=== PATIENT | female | born 1955 | race Caucasian/White ===

== ENCOUNTER 2017-04-12 20:14 | Emergency (ER) | payer SELFPAY ==
--- NOTE | 2017-04-12 20:29 | EDM.PDOC ---
ED HPI GENERAL MEDICAL PROBLEM - General Stated Complaint: MENTAL HEALTH Time Seen by Provider: 04/12/17 20:24 - History of Present Illness INITIAL COMMENTS - FREE TEXT/NARRATIVE: HISTORY AND PHYSICAL: History of present illness: Patient 61-year-old female brought here after roommate called for patient's altered mental status and severe jaundice patient is answering questions inconsistently unclearly is intermittently agitated uncooperative with paramedics on fourchette and upon arrival in emergency department she will give no history regarding her jaundice or medical condition and it remains fairly clear that the patient is altered. Review of systems: As per history of present illness and below otherwise all systems reviewed and negative. Past medical history: As per history of present illness and as reviewed below otherwise noncontributory. Surgical history: As per history of present illness and as reviewed below otherwise noncontributory. Social history: No reported history of drug or alcohol abuse. Family history: As per history of present illness and as reviewed below otherwise noncontributory. Physical exam: HEENT: Severe jaundice noted Atraumatic, normocephalic, pupils reactive, negative for conjunctival pallor or scleral icterus, mucous membranes moist, throat clear, neck supple, nontender, trachea midline. Lungs: Clear to auscultation, breath sounds equal bilaterally, chest nontender. Heart: S1S2, regular, negative for clicks, rubs, or JVD. Abdomen: Soft, which weren't positive ascites. Negative for masses or hepatosplenomegaly. Negative for costovertebral tenderness. Pelvis: Stable nontender. Genitourinary: Deferred. Rectal: Deferred. Extremities: Bandages to left leg with open wounds noted no cords pain Neuro: Awake, moves all extremities and follows commands limited but grossly nonfocal exam Diagnostics: CBC CMP PT/INR type and screen ammonia level EKG chest x-ray Therapeutics: Normal saline at 150 mL an hour Impression: #1 painless jaundice #2 altered mental status rule out hepatic encephalopathy Definitive disposition and diagnosis as appropriate pending reevaluation and review of above. - Related Data Allergies Allergy/AdvReac Type Severity Reaction Status Date / Time No Known Allergies Allergy Verified 04/12/17 20:28 Home Meds: Home Meds . [No Known Home Meds] 04/12/17 [History] ED ROS GENERAL - Review of Systems Review Of Systems: ROS reveals no pertinent complaints other than HPI. ED EXAM, GENERAL - Physical Exam Exam: See Below (See dictation) Course - Vital Signs Text/Narrative:: Patient's CT demonstrated multiple lesions in her liver consistent with metastatic disease moderate to large ascites thickened colon which may or may not represent colitis versus primary colon cancer a small left pneumothorax that was not seen on the chest x-ray but was picked up on the left base on her CT CT of her brain was negative potassium was 2.1 she had multiple other derangements including an ammonia of 176 white count 27,000 elevated liver function tests mag sulfate 2 g was ordered IV as was potassium 40 mEq IV Rocephin 1 g was given IV and I discussed case with Dr. Goodrich who is gracious enough to accept the patient for transfer to [facility] she'll go by ground ambulance patient at this point is quite cooperative she did acknowledge my discussion with her and agreed to transfer Last Recorded V/S: Last Vital Signs Temp 36.1 C 04/12/17 20:28 Pulse 69 04/12/17 22:01 Resp 20 04/12/17 22:01 BP 93/60 04/12/17 22:01 Pulse Ox 98 04/12/17 22:01 - Orders/Labs/Meds Orders: Active Orders 24 hr Category Date Time Status EKG Documentation Completion [RC] STAT Care 04/12/17 20:44 Active Pulse Oximetry [RC] ASDIRECTED Care 04/12/17 20:44 Active Abdomen Pelvis wo Cont [CT] Stat Exams 04/12/17 20:45 Taken Chest 1V Frontal [CR] Stat Exams 04/12/17 20:45 Taken Head wo Cont [CT] Stat Exams 04/12/17 20:45 Taken CULTURE BLOOD [BC] Stat Lab 04/12/17 20:40 Received CULTURE BLOOD [BC] Stat Lab 04/12/17 21:05 Results CULTURE URINE [RM] Stat Lab 04/12/17 21:10 Received Magnesium Sulfate/Water [Magnesium Sulfate 2 GM in Med 04/12/17 21:52 Active Water 50 ML] 2 gm Premix Bag 1 bag IV ONETIME Sodium Chloride 0.9% [Normal Saline] 1,000 ml Med 04/12/17 20:45 Active IV STAT Sodium Chloride 0.9% [Saline Flush] Med 04/12/17 20:45 Active 10 ml FLUSH ASDIRECTED PRN Sodium Chloride 0.9% [Saline Flush] Med 04/12/17 20:45 Active 2.5 ml FLUSH ASDIRECTED PRN Sodium Chloride 0.9% with KCl [Normal Saline with 40 Med 04/12/17 22:00 Active mEq KCl] 500 ml IV ASDIRECTED cefTRIAXone [Rocephin in Dextrose,Iso-Osm 1 GM/50 ML] 1 Med 04/12/17 22:11 Active gm Premix Bag 1 bag IV ONETIME Blood Culture x2 Reflex Set [OM.PC] Stat Ot 04/12/17 20:45 Ordered Saline Lock Insert [OM.PC] Stat Ot 04/12/17 20:44 Ordered Medication Orders Sodium Chloride (Normal Saline) 1,000 mls @ 125 mls/hr IV STAT [facility] Last Admin: 04/12/17 20:45 Dose: 125 mls/hr Magnesium Sulfate 2 gm/ Premix 50 mls @ 50 mls/hr IV ONETIME ONE Stop: 04/12/17 22:51 Last Admin: 04/12/17 22:05 Dose: 50 mls/hr Potassium Chloride/Sodium Chloride (Normal Saline With 40 Meq Kcl) 500 mls @ 125 mls/hr IV ASDIRECTED DASHA Ceftriaxone Sodium/Dextrose 1 (gm/ Premix) 50 mls @ 100 mls/hr IV ONETIME ONE Stop: 04/12/17 22:40 Sodium Chloride (Saline Flush) 10 ml FLUSH ASDIRECTED PRN PRN Reason: Keep Vein Open Last Admin: 04/12/17 20:53 Dose: 10 ml Sodium Chloride (Saline Flush) 2.5 ml FLUSH ASDIRECTED PRN PRN Reason: Keep Vein Open Last Admin: 04/12/17 20:53 Dose: 2.5 ml Labs: Laboratory Tests 04/12/17 04/12/17 04/12/17 Range/Units 20:40 20:40 20:40 WBC 27.59 H (4.0-11.0) K/uL RBC 2.95 L (4.30-5.90) M/uL Hgb 10.7 L (12.0-16.0) g/dL Hct 30.0 L (36.0-46.0) % MCV 101.7 H (80.0-98.0) fL MCH 36.3 H (27.0-32.0) pg MCHC 35.7 (31.0-37.0) g/dL RDW Std Deviation 54.9 (28.0-62.0) fl RDW Coeff of Avtar 15 (11.0-15.0) % Plt Count 275 (150-400) K/uL MPV 11.20 (7.40-12.00) fL Add Manual Diff YES Neutrophils % (Manual) 89 H (48.0-80.0) % Lymphocytes % (Manual) 9 L (16.0-40.0) % Monocytes % (Manual) 9 (0.0-15.0) % Eosinophils % (Manual) 2 (0.0-7.0) % Nucleated RBC % 0.0 /100WBC Absolute Seg Neuts 24.6 Lymphocytes # (Manual) 2.5 Monocytes # (Manual) 2.5 Eosinophils # (Manual) 0.6 Nucleated RBCs # 0 K/uL INR 1.74 H (0.86-1.11) Sodium 130 L (136-146) mmol/L Potassium 2.1 L* (3.5-5.1) mmol/L Chloride 90 L (98-110) mmol/L Carbon Dioxide 23 (21-31) mmol/L BUN 33 H (6.0-23.0) mg/dL Creatinine 1.4 (0.6-1.5) mg/dL Est Cr Clr Drug Dosing 33.37 mL/min Estimated GFR (MDRD) 38.2 ml/min Glucose 97 (60-110) mg/dL Calcium 8.6 L (8.8-10.8) mg/dL Total Bilirubin 29.2 H (0.1-1.5) mg/dL AST 146 H (5-40) IU/L ALT 60 H (8-54) IU/L Alkaline Phosphatase 247 H (40-150) Ammonia (14-68) UG/DL Troponin I (0.0-0.29) NG/ML Total Protein 5.1 L (6.0-8.0) g/dL Albumin 2.2 L (3.4-4.8) g/dL Globulin 2.9 (2.0-3.5) g/dL Albumin/Globulin Ratio 0.8 L (1.3-2.8) Urine Color Urine Appearance Urine pH (5.0-8.0) Ur Specific Volcano (1.001-1.035) Urine Protein (NEGATIVE) mg/dL Urine Glucose (UA) (NEGATIVE) mg/dL Urine Ketones (NEGATIVE) mg/dL Urine Occult Blood (NEGATIVE) Urine Nitrite (NEGATIVE) Urine Bilirubin (NEGATIVE) Urine Ictotest Urine Urobilinogen (<2.0) EU/dL Ur Leukocyte Esterase (NEGATIVE) Urine RBC (0-2/HPF) Urine WBC (0-5/HPF) Ur Epithelial Cells (NONE-FEW) Amorphous Sediment (NEGATIVE) Urine Bacteria (NEGATIVE) Urine Mucus (NONE-MOD) Urine Yeast Urine Opiates Screen (NEGATIVE) Ur Oxycodone Screen (NEGATIVE) Urine Methadone Screen (NEGATIVE) Acetaminophen 3.7 ug/mL Ur Barbiturates Screen (NEGATIVE) Ur Phencyclidine Scrn (NEGATIVE) Ur Amphetamine Screen (NEGATIVE) U Methamphetamines Scrn (NEGATIVE) U Benzodiazepines Scrn (NEGATIVE) U Cocaine Metab Screen (NEGATIVE) U Marijuana (THC) Screen (NEGATIVE) Ethyl Alcohol < 10.0 mg/dL 04/12/17 04/12/17 04/12/17 Range/Units 20:40 20:40 21:10 WBC (4.0-11.0) K/uL RBC (4.30-5.90) M/uL Hgb (12.0-16.0) g/dL Hct (36.0-46.0) % MCV (80.0-98.0) fL MCH (27.0-32.0) pg MCHC (31.0-37.0) g/dL RDW Std Deviation (28.0-62.0) fl RDW Coeff of Avtar (11.0-15.0) % Plt Count (150-400) K/uL MPV (7.40-12.00) fL Add Manual Diff Neutrophils % (Manual) (48.0-80.0) % Lymphocytes % (Manual) (16.0-40.0) % Monocytes % (Manual) (0.0-15.0) % Eosinophils % (Manual) (0.0-7.0) % Nucleated RBC % /100WBC Absolute Seg Neuts Lymphocytes # (Manual) Monocytes # (Manual) Eosinophils # (Manual) Nucleated RBCs # K/uL INR (0.86-1.11) Sodium (136-146) mmol/L Potassium (3.5-5.1) mmol/L Chloride (98-110) mmol/L Carbon Dioxide (21-31) mmol/L BUN (6.0-23.0) mg/dL Creatinine (0.6-1.5) mg/dL Est Cr Clr Drug Dosing mL/min Estimated GFR (MDRD) ml/min Glucose (60-110) mg/dL Calcium (8.8-10.8) mg/dL Total Bilirubin (0.1-1.5) mg/dL AST (5-40) IU/L ALT (8-54) IU/L Alkaline Phosphatase (40-150) Ammonia 176 H (14-68) UG/DL Troponin I < 0.10 (0.0-0.29) NG/ML Total Protein (6.0-8.0) g/dL Albumin (3.4-4.8) g/dL Globulin (2.0-3.5) g/dL Albumin/Globulin Ratio (1.3-2.8) Urine Color Urine Appearance Urine pH (5.0-8.0) Ur Specific Volcano (1.001-1.035) Urine Protein (NEGATIVE) mg/dL Urine Glucose (UA) (NEGATIVE) mg/dL Urine Ketones (NEGATIVE) mg/dL Urine Occult Blood (NEGATIVE) Urine Nitrite (NEGATIVE) Urine Bilirubin (NEGATIVE) Urine Ictotest Urine Urobilinogen (<2.0) EU/dL Ur Leukocyte Esterase (NEGATIVE) Urine RBC (0-2/HPF) Urine WBC (0-5/HPF) Ur Epithelial Cells (NONE-FEW) Amorphous Sediment (NEGATIVE) Urine Bacteria (NEGATIVE) Urine Mucus (NONE-MOD) Urine Yeast Urine Opiates Screen NEGATIVE (NEGATIVE) Ur Oxycodone Screen NEGATIVE (NEGATIVE) Urine Methadone Screen NEGATIVE (NEGATIVE) Acetaminophen ug/mL Ur Barbiturates Screen NEGATIVE (NEGATIVE) Ur Phencyclidine Scrn NEGATIVE (NEGATIVE) Ur Amphetamine Screen NEGATIVE (NEGATIVE) U Methamphetamines Scrn NEGATIVE (NEGATIVE) U Benzodiazepines Scrn NEGATIVE (NEGATIVE) U Cocaine Metab Screen NEGATIVE (NEGATIVE) U Marijuana (THC) Screen NEGATIVE (NEGATIVE) Ethyl Alcohol mg/dL 04/12/17 Range/Units 21:10 WBC (4.0-11.0) K/uL RBC (4.30-5.90) M/uL Hgb (12.0-16.0) g/dL Hct (36.0-46.0) % MCV (80.0-98.0) fL MCH (27.0-32.0) pg MCHC (31.0-37.0) g/dL RDW Std Deviation (28.0-62.0) fl RDW Coeff of Avtar (11.0-15.0) % Plt Count (150-400) K/uL MPV (7.40-12.00) fL Add Manual Diff Neutrophils % (Manual) (48.0-80.0) % Lymphocytes % (Manual) (16.0-40.0) % Monocytes % (Manual) (0.0-15.0) % Eosinophils % (Manual) (0.0-7.0) % Nucleated RBC % /100WBC Absolute Seg Neuts Lymphocytes # (Manual) Monocytes # (Manual) Eosinophils # (Manual) Nucleated RBCs # K/uL INR (0.86-1.11) Sodium (136-146) mmol/L Potassium (3.5-5.1) mmol/L Chloride (98-110) mmol/L Carbon Dioxide (21-31) mmol/L BUN (6.0-23.0) mg/dL Creatinine (0.6-1.5) mg/dL Est Cr Clr Drug Dosing mL/min Estimated GFR (MDRD) ml/min Glucose (60-110) mg/dL Calcium (8.8-10.8) mg/dL Total Bilirubin (0.1-1.5) mg/dL AST (5-40) IU/L ALT (8-54) IU/L Alkaline Phosphatase (40-150) Ammonia (14-68) UG/DL Troponin I (0.0-0.29) NG/ML Total Protein (6.0-8.0) g/dL Albumin (3.4-4.8) g/dL Globulin (2.0-3.5) g/dL Albumin/Globulin Ratio (1.3-2.8) Urine Color DARK YELLOW Urine Appearance CLEAR Urine pH 6.5 (5.0-8.0) Ur Specific Volcano 1.015 (1.001-1.035) Urine Protein TRACE (NEGATIVE) mg/dL Urine Glucose (UA) 100 H (NEGATIVE) mg/dL Urine Ketones TRACE H (NEGATIVE) mg/dL Urine Occult Blood NEGATIVE (NEGATIVE) Urine Nitrite POSITIVE H (NEGATIVE) Urine Bilirubin LARGE H (NEGATIVE) Urine Ictotest POSITIVE Urine Urobilinogen 2.0 H (<2.0) EU/dL Ur Leukocyte Esterase MODERATE (NEGATIVE) Urine RBC 2-4 (0-2/HPF) Urine WBC 4-6 (0-5/HPF) Ur Epithelial Cells FEW (NONE-FEW) Amorphous Sediment FEW (NEGATIVE) Urine Bacteria 2+ H (NEGATIVE) Urine Mucus FEW (NONE-MOD) Urine Yeast MODERATE Urine Opiates Screen (NEGATIVE) Ur Oxycodone Screen (NEGATIVE) Urine Methadone Screen (NEGATIVE) Acetaminophen ug/mL Ur Barbiturates Screen (NEGATIVE) Ur Phencyclidine Scrn (NEGATIVE) Ur Amphetamine Screen (NEGATIVE) U Methamphetamines Scrn (NEGATIVE) U Benzodiazepines Scrn (NEGATIVE) U Cocaine Metab Screen (NEGATIVE) U Marijuana (THC) Screen (NEGATIVE) Ethyl Alcohol mg/dL Meds: Medications Generic Name Dose Route Start Last Admin Trade Name Freq PRN Reason Stop Dose Admin Sodium Chloride 1,000 mls @ 125 mls/hr 04/12/17 20:45 04/12/17 20:45 Normal Saline IV 125 mls/hr STAT DASHA Administration Magnesium Sulfate 2 gm/ Premix 50 mls @ 50 mls/hr 04/12/17 21:52 04/12/17 22: 05 IV 04/12/17 22:51 50 mls/hr ONETIME ONE Administration Potassium Chloride/Sodium Chloride 500 mls @ 125 mls/hr 04/12/17 22:00 Normal Saline With 40 Meq Kcl IV ASDIRECTED DASHA Ceftriaxone Sodium/Dextrose 1 50 mls @ 100 mls/hr 04/12/17 22:11 gm/ Premix IV 04/12/17 22:40 ONETIME ONE Sodium Chloride 10 ml 04/12/17 20:45 04/12/17 20:53 Saline Flush FLUSH 10 ml ASDIRECTED PRN Administration Keep Vein Open Sodium Chloride 2.5 ml 04/12/17 20:45 04/12/17 20:53 Saline Flush FLUSH 2.5 ml ASDIRECTED PRN Administration Keep Vein Open Departure - Departure Time of Disposition: 20:28 Disposition: DC/Tfer to Acute Hospital 02 Condition: Serious Clinical Impression: Altered mental status, Jaundice, Encephalopathy, Pneumothorax - Discharge Information - My Orders Last 24 Hours: My Active Orders 04/12/17 20:40 CULTURE BLOOD [BC] Stat 04/12/17 20:44 EKG Documentation Completion [RC] STAT Pulse Oximetry [RC] ASDIRECTED Saline Lock Insert [OM.PC] Stat 04/12/17 20:45 Abdomen Pelvis wo Cont [CT] Stat Chest 1V Frontal [CR] Stat Head wo Cont [CT] Stat Sodium Chloride 0.9% [Normal Saline] 1,000 ml IV STAT Sodium Chloride 0.9% [Saline Flush] 10 ml FLUSH ASDIRECTED PRN Sodium Chloride 0.9% [Saline Flush] 2.5 ml FLUSH ASDIRECTED PRN Blood Culture x2 Reflex Set [OM.PC] Stat 04/12/17 21:05 CULTURE BLOOD [BC] Stat 04/12/17 21:10 CULTURE URINE [RM] Stat 04/12/17 21:52 Magnesium Sulfate/Water [Magnesium Sulfate 2 GM in Water 50 ML] 2 gm Premix Bag 1 bag IV ONETIME 04/12/17 22:00 Sodium Chloride 0.9% with KCl [Normal Saline with 40 mEq KCl] 500 ml IV ASDIRECTED 04/12/17 22:11 cefTRIAXone [Rocephin in Dextrose,Iso-Osm 1 GM/50 ML] 1 gm Premix Bag 1 bag IV ONETIME - Assessment/Plan Last 24 Hours: My Active Orders 04/12/17 20:40 CULTURE BLOOD [BC] Stat 04/12/17 20:44 EKG Documentation Completion [RC] STAT Pulse Oximetry [RC] ASDIRECTED Saline Lock Insert [OM.PC] Stat 04/12/17 20:45 Abdomen Pelvis wo Cont [CT] Stat Chest 1V Frontal [CR] Stat Head wo Cont [CT] Stat Sodium Chloride 0.9% [Normal Saline] 1,000 ml IV STAT Sodium Chloride 0.9% [Saline Flush] 10 ml FLUSH ASDIRECTED PRN Sodium Chloride 0.9% [Saline Flush] 2.5 ml FLUSH ASDIRECTED PRN Blood Culture x2 Reflex Set [OM.PC] Stat 04/12/17 21:05 CULTURE BLOOD [BC] Stat 04/12/17 21:10 CULTURE URINE [RM] Stat 04/12/17 21:52 Magnesium Sulfate/Water [Magnesium Sulfate 2 GM in Water 50 ML] 2 gm Premix Bag 1 bag IV ONETIME 04/12/17 22:00 Sodium Chloride 0.9% with KCl [Normal Saline with 40 mEq KCl] 500 ml IV ASDIRECTED 04/12/17 22:11 cefTRIAXone [Rocephin in Dextrose,Iso-Osm 1 GM/50 ML] 1 gm Premix Bag 1 bag IV ONETIME
[2017-04-12] MEDS ORDERED: Sodium Chloride 0.9% 10 ML Syringe FLUSH PRN (20:45)
[2017-04-12] MEDS ORDERED: Sodium Chloride 0.9% 1,000 ML IV SCH (20:45)
[2017-04-12] MEDS ORDERED: Sodium Chloride 0.9% 2.5 ML Syringe FLUSH PRN (20:45)
[2017-04-12 21:32] LABS: ACETAMINOPHEN 3.7 ug/mL; CHLORIDE,CL 90 mmol/L (98-110); SODIUM,NA 130 mmol/L (136-146)
[2017-04-12] MEDS ORDERED: Magnesium Sulfate/Water 2 GM in Premix Bag 1 BAG IV ONE (21:52)
[2017-04-12] MEDS ORDERED: Sodium Chloride 0.9% with KCl 500 ML IV SCH ×2 (22:00→22:30)
[2017-04-12] MEDS ORDERED: cefTRIAXone 1 GM in Premix Bag 1 BAG IV ONE (22:11)
[2017-04-12 22:48] VITALS: BP 104/51
--- NOTE | 2017-04-13 11:52 | CR ---
EXAM DATE: 04/12/17 PATIENT'S AGE: 61 Patient: PETRONA VILLANUEVA Facility: [place], [place] Site . Site : 1955 Study: XRay Chest [id number]/2017 9:28:17 PM Ordering Physician: Montse Dorsey Final Report: CHEST 1 VIEW AP INDICATION: Short of breath. IMPRESSION: Normal heart size and vascular pattern. No dense consolidation. Right lung clear. Linear areas of scarring or atelectasis left lower lobe. Lateral left lung base and retrocardiac region. Mild elevation left hemidiaphragm. No pneumothorax or pleural abnormality. Dictated by Dariel Lucas MD @ Apr 12 2017 9:36PM (Electronic Signature) Report Signed by Proxy. BREANNE
--- NOTE | 2017-04-13 11:53 | CT ---
EXAM DATE: 04/12/17 PATIENT'S AGE: 61 Patient: PETRONA VILLANUEVA Facility: [place], [place] Site . Site : 1955 Study: CT Head [id number] 9:49:49 PM Ordering Physician: Montse Dorsey Final Report: INDICATION: Jaundice, pain TECHNIQUE: Head CT without contrast. COMPARISON: None FINDINGS: CSF spaces: Within normal limits for age. Brain parenchyma: Normal red-white junction. No sign of mass, hemorrhage, or midline shift. Skull base and calvarium: There is an air-fluid level within the left maxillary sinus. The mastoid air cells demonstrate no acute or significant findings. The visualized orbits are grossly unremarkable. No skull fractures. There is intracranial atherosclerosis. IMPRESSION: 1. No acute intracranial abnormality. 2. Air-fluid level in left maxillary sinus. Correlate with signs of acute sinusitis. Please note that all CT scans at this facility use dose modulation, iterative reconstruction, and/or weight-based dosing when appropriate to reduce radiation dose to as low as reasonably achievable. Dictated by Leticia Villanueva MD @ Apr 12 2017 9:55PM (Electronic Signature) Report Signed by Proxy. [facility]
--- NOTE | 2017-04-13 11:55 | CT ---
EXAM DATE: 04/12/17 PATIENT'S AGE: 61 Patient: PETRONA VILLANUEVA Facility: [place], [place] : 1955 Study: CT Abdomen/Pelvis [id number]/[id number] 9:50:28 PM Ordering Physician: Montse Dorsey Final Report: INDICATION: Jaundice, pain TECHNIQUE: CT abdomen and pelvis without contrast. COMPARISON: None FINDINGS: Lower chest: Small left pneumothorax. Small to moderate-sized left pleural effusion. Small hiatal hernia. Liver: Innumerable hypodense lesions replace much of the normal liver parenchyma. [id number] amount of ascites. Spleen: Unremarkable. Pancreas: Unremarkable. Gallbladder and bile ducts: Cholelithiasis. Adrenal glands: Unremarkable. Kidneys: Unremarkable. No kidney or ureteral stones and no hydronephrosis. GI tract: Colonic diverticulosis. Circumferential wall thickening of the proximal and mid ascending colon. No extraluminal air or bowel obstruction. Vascular structures: Atherosclerotic disease. Lymph nodes: Unremarkable. Miscellaneous: There are some small nodular densities within the mesenteric fat. Mild anasarca. Pelvic Organs: Unremarkable. Bones: Severe S-shaped scoliosis of the spine. Diffuse osteopenia. IMPRESSION: Small left pneumothorax. Small to moderate left pleural effusion. Innumerable hypodense hepatic lesions may represent metastatic disease. Moderate to large amount of ascites. There are a few soft tissue densities within the mesenteric fat which could represent lymph nodes or peritoneal carcinomatosis. Circumferential thickening in ascending colon. This may represent colitis or neoplasm. Cholelithiasis. Colonic diverticulosis. Scoliosis. These findings were discussed with Dr. Willard at 10:14pm on 04/12/2017. Please note that all CT scans at this facility use dose modulation, iterative reconstruction, and/or weight-based dosing when appropriate to reduce radiation dose to as low as reasonably achievable. Dictated by Leticia Villanueva MD @ Apr 12 2017 10:07PM (Electronic Signature) Report Signed by Proxy. [facility]
== END 2017-04-12 23:50 ==
LOC: MW.ED 20:14
DX: J93.9 Pneumothorax, unspecified (principal); G93.40 Encephalopathy, unspecified; R41.82 Altered mental status, unspecified; R17 Unspecified jaundice
CPT/HCPCS: 70450; 71010; 74176; 80053; 80305; 81001; 82140; 84484; 85025; 85610; 87040; 87086; 93005; 96361; 96365; 96375; 99285; G0480; J0696; J3475; J7040; 87077; 87186; 99284